=== PATIENT | male | born 1975 ===

== ENCOUNTER 2025-05-18 08:50 | Day surgery (SDC) | payer MEDICAID ==
--- NOTE | 2025-05-11 13:45 | ELECTROCARDIOGRAPH REPORT ---
[facility] Test Date: 2025-05-11 Test Time: 13:43:52 Pat Name: CORINA FOLEY Department: [facility]-PRE-OP Patient ID: [facility]-[id number] Room: Gender: M [employer] Super[employer]: : 1975 Requested By: KANDICE FRAZIER Order Number: [id number] Reading MD: Dr. JEANNINE Price Measurements Intervals [place] Rate: 68 P: 25 MA: 149 QRS: 77 QRSD: 92 T: 57 QT: 392 QTc: 417 Interpretive Statements Sinus rhythm ST elev, probable normal early repol pattern Electronically Signed On 05-11-2025 17:33:[address] JEANNINE Price Please click the below link to view image of tracing.
[2025-05-11 13:48] LABS: MEAN PLATELET VOLUME 8.6 FL (7.4-10.4); PRE OP HEMATOCRIT 48.7 % (42.0-52.0); PRE OP HEMOGLOBIN 16.9 g/dL (14.0-17.9); PRE OP PLATELET COUNT 216 X10'3 (140-440); PRE OP WHITE BLOOD COUNT 7.5 10'3 (4.8-10.8); RED CELL DISTRIBUTION WIDTH 13.4 % (11.5-14.5)
[2025-05-11 14:02] LABS: CREATININE 0.87 MG/DL (0.60-1.10); PRE OP ALT 33 U/L (30-65); PRE OP ANION GAP 10 (8-16); PRE OP AST 21 U/L (10-37); PRE OP BILIRUB, TOTAL 0.6 MG/DL (0.0-1.0); PRE OP GLUCOSE 113 MG/DL (70-104); PRE OP POTASSIUM 4.2 MMOL/L (3.4-5.1); PRE OP SODIUM 142 MMOL/L (135-145); TOTAL CARBON DIOXIDE 28.0 MMOL/L (24-32); eGFR > 90 ML/MIN
[~2025-05-18] VITALS: Ht 193 cm; Wt 108.8 kg
[2025-05-18] VITALS (13 sets, daily range): BP systolic 99–134; BP diastolic 62–82; PULSE 58–76; RESP 13–16; TEMP 97.2; O2SAT 97–100
[2025-05-18] MEDS: ceFAZolin 2gm/dext,iso 50mL 50 ML IV ONE (05:30)
[~2025-05-18 08:50] MED LIST: NO HOME MEDS
[2025-05-18] MEDS: ringers solution, lacted 1,000 ML IV SCH (09:32)
[2025-05-18] MEDS ORDERED: LIDOcaine 1% (10mg/ml)w/preservative inj. 20ml MDV ONE (09:46)
[2025-05-18] MEDS ORDERED: BUPIVAcaine/PF 2.5mg/ml (0.25%) 10ml vial ONE (09:46)
[2025-05-18] MEDS ORDERED: MIDAZolam 1 MG/ML 5ML VIAL ONE (10:55)
[2025-05-18] MEDS ORDERED: fentaNYL /PF 50mcg/ml 5ml ampule ONE (10:56)
[2025-05-18] MEDS ORDERED: acetaminophen 1,000mg/100ml IV 100 ML IV ONE (11:03)
[2025-05-18] MEDS ORDERED: LIDOcaine 1%/PF 5ML 10 MG/ML VIAL ONE (11:04)
[2025-05-18] MEDS ORDERED: glycopyrrolate 0.2mg/ml inj ONE (11:04)
[2025-05-18] MEDS ORDERED: propofol inj 20 ML IV ONE (11:04)
[2025-05-18] MEDS ORDERED: rocuronium 10mg/ml inj IV ONE (11:04)
[2025-05-18] MEDS ORDERED: ondansetron/PF 4mg/2ml inj ONE (11:05)
[2025-05-18] MEDS: BUPIVAcaine/PF 2.5mg/ml (0.25%) 10ml vial IJ ONE (11:28)
[2025-05-18] MEDS: fentaNYL/PF 50MCG/1 ML 2ML syringe ONE (12:45)
--- NOTE | 2025-05-18 12:55 | OPERATIVE REPORT ---
Operative Report Providers to CC: CASH FRAZIER MD ~ Date of Procedure: May 18, 2025 Pre-Operative Diagnosis: Recurrent left inguinal hernia Post-Operative Diagnosis SAME as PRE-Op Procedure Performed Robotic assisted, laparoscopic recurrent left inguinal hernia repair with mesh Surgeon: Cash Frazier MD FACS [place] [facility] Dred[facility] Barge None Anesthesiologist: Kristopher Rosario Type of Anesthesia: General Findings: Indirect recurrent left inguinal hernia No evidence of recurrent right inguinal hernia Evidence of previous preperitoneal repair Wound class I Complications None Prosthetics\Implants used: Large left Dextile mesh Estimated Blood Loss: Minimal Specimen Removed: None Description of Procedure: Patient was brought to the operating room and identified by the nursing staff and the attending physician. Patient was placed supine and general anesthesia was induced. Patient's abdomen was prepped and draped in standard sterile fashion. Preoperative antibiotics were given. Veress needle technique was used to gain access to the abdomen which was then insufflated without incident. Left mid abdominal incision was made and a 12 mm optical trocar was placed under laparoscopic visualization. Laparoscope was inserted after insufflation. There were no intra-abdominal adhesions and left periumbilical and right mid abdominal 8.5 mm robotic trocars were placed under laparoscopic visualization. The da Melony robotic arm was docked to the patient and instruments placed intra-abdominally under laparoscopic visualization. The right hemipelvis was examined and showed no evidence of right inguinal hernia. A direct inguinal hernia was identified on the left side. Hernia sac was moderate in size. There was also visible preperitoneal mesh on the left side. A rent was created in the peritoneum from the median umbilical fold and carried out laterally towards the anterior superior iliac spine. Doing this required dividing the previously placed mesh and developing a plane between the mesh and the spermatic cord. Preperitoneal flap was created and carried down to the symphysis pubis. The retropubic space of [place] was developed and the bladder swept medially. Dissection was carried out laterally until a direct hernia sac was identified. This was moderate in size. Preperitoneal fat herniated into the indirect defect was reduced with the peritoneum. Peritoneum and previously placed hernia mesh was completely dissected away from the cord structures and reduced. Cord structures were completely left intact and I was able to separate them from the previously placed mesh without any obvious injury. The critical view of the myopectineal orifice was achieved. Dissection was carried out laterally to allow space for mesh deployment. A large mesh and suture was passed intra-abdominally. Mesh was laid in the preperitoneal space covering both indirect, direct, and potential femoral and obturator hernias. Mesh laid without wrinkles or folds. 3 tacking sutures using 0 Ethibond were used to fix the mesh at the symphysis pubis, rectus abdominis, and just anterior to the anterior superior iliac spine. The peritoneal rent was then closed with running, 2/0, absorbable locking suture. [place] were retrieved. Abdomen was deflated and the 12 mm trochar removed. Fascia was closed at this site percutaneously with 0 Vicryl suture under laparoscopic visualization. Abdomen was deflated and 8.5 mm ports were removed. Skin incisions were closed with 4-0 Monocryl sutures in a subcuticular fashion. Sterile dressings were applied. Patient was awakened and taken to the ostanesthesia care unit in stable condition. Counts repoted as correct: Yes CASH FRAZIER MD May 18, 2025 12:55
[2025-05-18] MEDS ORDERED: ondansetron/PF 4mg/2ml inj IV PRN (13:00)
[2025-05-18] MEDS ORDERED: fentaNYL/PF 50MCG/1 ML 2ML syringe IV PRN (13:00)
[2025-05-18] MEDS: HYDROcodone/acetaminophen 5mg/325mg tablet PO PRN (13:06)
[2025-05-18] MEDS: morphine 4 MG/ML inj SYRINge IV PRN (13:09)
== END 2025-05-18 14:10 | disposition home or self-care (01) ==
LOC: PAS 08:50
PROVIDERS: ATTEND Surgery
DX: K40.91 Unilateral inguinal hernia, without obstruction or gangrene, recurrent (principal); K21.9 Gastro-esophageal reflux disease without esophagitis; G47.30 Sleep apnea, unspecified; F41.9 Anxiety disorder, unspecified; Z87.891 Personal history of nicotine dependence; Z90.89 Acquired absence of other organs; Z98.890 Other specified postprocedural states
CPT/HCPCS: 36415; 49651; 80053; 82948; 85025; 93005; C1781; J0131; J1100; J2250; J2270; J2405; J2704; J2710; J3010; J3490; J7030; J7120; S2900; Z7506; Z7508; Z7512; A4215; A4618